=== PATIENT | male | born 1950 | race Caucasian/White ===

== ENCOUNTER 2018-07-09 06:18 | Inpatient (IN) | payer MEDICARE, MEDICAID ==
[2018-07-09 06:52] VITALS: BP 128/87
[2018-07-09] MEDS ORDERED: Magnesium Hydroxide (MOM) 30 mL UDC PO PRN (06:52)
[2018-07-09] MEDS ORDERED: Maalox 30 mL Cup PO PRN (06:52)
[2018-07-09 08:05] LABS: CHOLESTEROL 159 mg/dL (<200); HDL -HIGH DENSITY LIPOPROTEIN 38 mg/dL (23-92); TRIGLYCERIDES 304 mg/dL (<150)
[2018-07-09] MEDS ORDERED: Benztropine 1 MG TAB PO SCH (08:15)
[2018-07-09] MEDS: Multivitamin Tab PO SCH (09:35)
[2018-07-09] MEDS: Benztropine 1 MG TAB PO SCH (16:27)
[2018-07-10] MEDS: Benztropine 1 MG TAB PO SCH ×2 (08:45→16:31)
[2018-07-10] MEDS: Multivitamin Tab PO SCH (08:45)
[2018-07-10] MEDS: Escitalopram Oxalate 5 mg Tab PO SCH (08:58)
[2018-07-10] MEDS ORDERED: Escitalopram Oxalate 5 mg Tab PO SCH (09:00)
--- NOTE | 2018-07-10 12:53 | Psychiatric Evaluation ---
DATE OF SERVICE: 07/09/2018 IDENTIFYING INFORMATION: The patient is a 68-year-old male. CHIEF COMPLAINT: No answer. HISTORY OF PRESENT ILLNESS: The patient was walking on the streets, aggressive towards staff. He was on a hold for danger to self, grave disability, danger to others. He is homeless, unable to participate in meaningful conversation or make safe plan for self-care. When I talked to him, he looked disheveled. He was internally preoccupied, unable to make safe plan for self-care, unpredictable, impulsive, needing redirection. PAST PSYCHIATRIC HISTORY: Unobtainable. MEDICAL HISTORY: Deferred to the medical doctor.. ALLERGIES: The patient has no known drug allergy. MEDICATIONS: The patient was initiated on Lexapro 5 mg daily, Cogentin 1 mg twice a day. FAMILY AND SOCIAL HISTORY: Unobtainable. MENTAL STATUS EXAMINATION: The patient is appropriately dressed, not well groomed. He is homeless, unable to participate in meaningful conversation, unable to make safe plan for self-care, unpredictable, impulsive, unable to tell me his age, date, where he is, why he is here. His long or short-term memory is poor. Insight and judgment are questionable impaired. IMPRESSION: Psychosis, not otherwise specified, dementia. MEDICAL DIAGNOSES: As per medical doctor. I would recommend continue medication. We will do group therapy, milieu therapy. ESTIMATED LENGTH OF STAY: 3-7 days ____ patient. DISCHARGE CRITERIA: Feeling better with a safe place to go to after discharge. JOB# [id number]
--- NOTE | 2018-07-10 16:42 | Psychiatric Evaluation ---
DATE OF SERVICE: 07/09/2018 HISTORY OF PRESENT ILLNESS: A 68-year-old male with unclear history of mental illness brought in because was noted to be aggressive, disoriented, placed on a hold. On [id number], the patient is AO to name only, rambling, pacing up and down the hallway, making odd gestures and movements with his hands, touching the floor, putting his hands in his mouth, then touching the floor again. There is almost an obsessive quality to his movements and behaviors. Staff requiring to prompt him quite a bit, prompt him to eat, redirection. PAST MEDICAL HISTORY: Unclear. PAST PSYCHIATRIC HISTORY: Schizophrenia. He is on Haldol, not answering any questions about diagnoses or admission in the past. SOCIAL HISTORY: Unclear at this time, it appears the patient may be homeless. No other address but the hospital address. Unclear if there is any family involved. Unclear drugs, alcohol, or tobacco. MEDICATIONS: Noted. MEDICAL HISTORY: Noted. Please see full H and P. MENTAL STATUS EXAMINATION: Disheveled, unkempt, little eye contact, and rambling nonsensical, AO to name only. Mood not answering. Affect flat. Thought processes were disorganized. No overt SI or HI, unclear psychotic symptoms. Seems to be mumbling to self. Insight poor. Judgment poor, impulse control highly questionable. PROVISIONAL DIAGNOSES: Psychosis, unspecified, likely schizophrenia, rule out schizoaffective disorder. MEDICAL: Please see full H and P. It is unclear if he has any signs and symptoms or evidence of dementia. ESTIMATED LENGTH OF STAY: 7-10 days. Functional impairment. The patient requiring a higher level of care at this time. Will likely need referral to a [facility] facility, help with placement. ASSESSMENT: The patient is disorganized, psychotic, appearing bizarre, gravely disabled. PLAN: We will continue Haldol. Initiate Lexapro to target any obsessive qualities, obsessive compulsive disorder as a rule out at this time. TREATMENT PLAN: Includes group as well as milieu therapy. The patient will also likely need help with placement. CONDITIONS FOR DISCHARGE: Improved mood, improved affect, better control of any psychotic symptoms, safe discharge plan. JOB# [id number]
[2018-07-11] MEDS: Benztropine 1 MG TAB PO SCH ×2 (08:16→16:29)
[2018-07-11] MEDS: Escitalopram Oxalate 5 mg Tab PO SCH (08:16)
[2018-07-11] MEDS: Multivitamin Tab PO SCH (08:16)
--- NOTE | 2018-07-12 00:53 | Progress Notes ---
DATE: 07/11/2018 SUBJECTIVE: Case was discussed with staff of the patient, reviewed records. The patient continues to be unable to provide a meaningful conversation, irritable. He was eating from the floor, making gestures and movement, unable to participate in meaningful conversation with a history of schizophrenia. Continues to look disheveled, unkempt. When I asked him how old is he today, he said 26, but he would not look me in the eye. He continues to be unpredictable, impulsive, needing redirection and he is gravely disabled. He is homeless needs placement, cannot formulate a safe plan for self-care and no side effects with the medication, no sedation or nausea or no extrapyramidal symptoms. We will continue to work with the patient in group therapy, milieu therapy, and adjust the medication as needed. JOB# [id number]
--- NOTE | 2018-07-12 07:35 | History & Physical ---
ADMIT DATE: 07/11/2018 REASON FOR ADMISSION: Psychiatric disorder I was asked to see the patient for medical evaluation. No reported medical concerns. The patient denies complaints. PAST MEDICAL HISTORY: No significant past medical history. PAST SURGICAL HISTORY: No significant past surgical history. SOCIAL HISTORY: No reported alcohol, tobacco or street drugs. MEDICATIONS: Maalox, Cogentin, Lexapro, Haldol, Ativan, milk of mag and vitamin C. REVIEW OF SYSTEMS: No fever, no chills, no diarrhea, no vomiting, no abdominal pain, no trouble breathing, no chest pain, no headache or other complaints or concerns. PHYSICAL EXAMINATION: VITAL SIGNS: Temperature 97.9, pulse 80, respirations 20, blood pressure 126/80 on room air. Pain is 0. GENERAL APPEARANCE: The patient confused no distress noted HEART: S1, S2 normal. LUNGS: Clear. ABDOMEN: Soft. NEUROLOGIC: Awake, but confused. Follows commands. No focal deficits. ASSESSMENT: 1. Hyperlipidemia. 2. Psych disorder. PLAN: Low-fat diet. Fall precautions, aspiration precautions, psychotropic medication, Psych management per psychiatrist. JOB# [id number] MTDD
[2018-07-12] MEDS: Benztropine 1 MG TAB PO SCH ×2 (08:37→16:35)
[2018-07-12] MEDS: Multivitamin Tab PO SCH (08:37)
--- NOTE | 2018-07-12 18:14 | Progress Notes ---
DATE: 07/12/2018 SUBJECTIVE: A 68-year-old male, walking apparently on the streets, aggressive towards staff, and noted to be homeless. Mumbling to self, taking to self, eating food of the ground, disheveled appearing, very very poor historian, unable to answer any questions. Currently on high doses of Haldol and also Lexapro for what appears to be some obsessional behaviors, gravely disabled, unable to participate in any sort of self-care planning discussion. ASSESSMENT: The patient is psychotic, disorganized appearing, likely has had schizophrenia for decades. PLAN: We will continue dosing of Haldol and increase dosing of Lexapro. JOB# [id number]
[2018-07-13] MEDS: Multivitamin Tab PO SCH (08:42)
[2018-07-13] MEDS: Benztropine 1 MG TAB PO SCH ×2 (08:42→17:11)
--- NOTE | 2018-07-13 17:02 | Progress Notes ---
DATE: 07/13/2018 SUBJECTIVE: The patient was walking on the street, aggressive towards staff, very confused, disoriented, remains gravely disabled, mumbling in the hallway, talking to self, not making any sense, picking things up off the ground, preoccupied, picking up materials, needing a lot of redirection. The patient is confused, unable to participate in any self-care planning discussion. ASSESSMENT AND PLAN: The patient remains symptomatic, bizarre, ongoing safety concerns. We will continue to monitor. The patient will need help with placements. JOB# [id number]
[2018-07-14] MEDS: Multivitamin Tab PO SCH (09:03)
[2018-07-14] MEDS: Benztropine 1 MG TAB PO SCH ×2 (09:03→17:20)
--- NOTE | 2018-07-14 18:53 | Progress Notes ---
DATE: 07/14/2018 The patient remains symptomatic, disorganized, bizarre, gravely disabled, unable to have any sort of reasonable conversation, still with some obsessive behaviors, bizarre behavior, still picking things up off the ground, picking up trash, putting objects in his mouth, needing constant redirection, at times, needing p.r.n. dosing of Ativan. ASSESSMENT: The patient is confused, withdrawn, gravely disabled, needing a higher level of prompting, redirection, mumbling to self, bizarre ideations, behaviors. PLAN: We will continue to monitor, titrate and adjust medications. JOB# [id number]
[2018-07-15] MEDS: Benztropine 1 MG TAB PO SCH ×2 (09:00→17:16)
[2018-07-15] MEDS: Multivitamin Tab PO SCH (09:01)
--- NOTE | 2018-07-15 11:37 | Diagnostic Imaging Report ---
CT scan abdomen and pelvis without intravenous contrast HISTORY: Pain, abdominal distention Total DLP equals 462 CTDI equals 9.5 Axial sections were obtained from the xiphoid process down to the pubic symphysis. The exam of the liver demonstrates a subcentimeter hypodensity within the left lobe consistent with a cyst. No other focal hepatic parenchymal lesions are seen. The spleen appears normal. No focal abnormality seen within the pancreas. The adrenal glands appear normal bilaterally. No focal renal lesions. No calculi. No hydronephrosis. The exam of the pelvis demonstrates a markedly distended stool-filled rectum and sigmoid colon. Findings consistent with changes of fecal impaction. Additional mildly dilated stool-filled large bowel seen. No other abnormal masses or abnormal fluid collections. Atherosclerotic calcination noted throughout the aorta. IMPRESSION: 1. Markedly distended stool-filled rectum and sigmoid colon consistent with a fecal impaction 2. No other acute abnormalities
[2018-07-15] MEDS ORDERED: Fleet Enema 135 mL RC ONE (20:00)
--- NOTE | 2018-07-15 21:32 | General Progress Note ---
Subjective - Review of Systems Service Date: 07/15/18 Subjective: Patient seen and examined noticed to have abd distension patient been eating objects from the floor Objective - Results Recent Labs: Laboratory Last Values Triglycerides 304 mg/dL (<150) H 07/09/18 07:30 Cholesterol 159 mg/dL (<200) 07/09/18 07:30 LDL Cholesterol Direct 80 mg/dL (75-193) 07/09/18 07:30 HDL Cholesterol 38 mg/dL (23-92) 07/09/18 07:30 - Physical Exam Vitals and I&O: Vital Signs Temp 98.2 F 07/15/18 20:22 Pulse 94 07/15/18 20:22 Resp 20 07/15/18 20:22 BP 139/80 07/15/18 20:22 Pulse Ox 96 07/15/18 20:22 Intake & Output 07/15/18 07/15/18 07/16/18 06:59 18:59 06:59 Intake Total 240 900 240 Balance 240 900 240 Intake: Oral 240 900 240 Other: # Voids 2 3 1 # Bowel Movements 1 Active Medications: Current Medications Acetaminophen (Tylenol) 650 mg PO Q4HR PRN PRN Reason: Mild Pain / Temp above 100 Stop: 09/07/18 06:51 Al Hydrox/Mg Hydrox/Simethicone (Maalox) 30 ml PO Q4HR PRN PRN Reason: GI DISTRESS Stop: 09/07/18 06:51 Benztropine Mesylate (Cogentin) 1 mg PO BID [facility] Stop: 09/07/18 16:59 Last Admin: 07/15/18 17:16 Dose: 1 mg Docusate Sodium (Colace) 100 mg PO BID [facility] Stop: 09/14/18 08:59 Escitalopram Oxalate (Lexapro) 10 mg PO DAILY [facility] Stop: 09/10/18 16:59 Last Admin: 07/15/18 09:01 Dose: 10 mg Haloperidol (Haldol) 10 mg PO BID [facility] Stop: 09/07/18 12:59 Last Admin: 07/15/18 17:17 Dose: 10 mg Lorazepam (Ativan) 0.5 mg PO Q4HR PRN; Protocol PRN Reason: Anxiety Stop: 08/08/18 06:51 Last Admin: 07/14/18 22:42 Dose: 0.5 mg Magnesium Hydroxide (Milk Of Magnesia) 30 ml PO HS PRN PRN Reason: Constipation Multivitamins/Vitamin C (Theragran) 1 tab PO DAILY [facility] Stop: 09/07/18 08:59 Last Admin: 07/15/18 09:01 Dose: 1 tab Cardiovascular: Regular rate Lungs: Clear to auscultation Abdomen: Distended, no Tender Assessment/Plan - Assessment Assessment: Severe constipation Hyperlipidemia Mental health disorder - Plan Plan: fleet enema dulcolax prn Plan of care discussed with nursing staff Nutritional Asmnt/Malnutr-PDOC - Dietary Evaluation Malnutrition Findings (Please click <Entered> for more info): Nutritional Asmnt/Malnutrition Start: 07/12/18 09: 25 Text: Status: Complete Freq: Protocol: Document 07/12/18 09:25 MMDONNY (Rec: 07/12/18 09:40 MMDONNY CAMARILLO- [id number]) Nutritional Asmnt/Malnutrition Patient General Information Nutritional Screening Moderate Risk Diagnosis Schizophrenia Pertinent Medical Hx/Surgical Hx none available Subjective Information Per nursing notes, patient is homeless. Sleeping at time of visit. Current Diet Order/ Nutrition Support Regular Patient / S.O Not Indicated Pertinent Medications maalox, MOM, Theragran Pertinent Labs (07/09) TAG 304 Nutritional Hx/Data Height 1.73 m Height (Calculated Centimeters) 172.7 Current Weight (lbs) 65.771 kg Weight (Calculated Kilograms) 65.8 Weight (Calculated Grams) 48786.9 Hardy Body Weight 154 % Hardy Body Weight 94 Body Mass Index (BMI) 22.0 Recent Weight Change No Weight Status Approriate GI Symptoms GI Symptoms None Last BM 07/11 x 1 Difficult in: None Food Allergies No Cultural/Ethnic/Adventism Belief None indicated Usual diet at home unknown Skin Integrity/Comment: Dajuan 18, per wound care nurse, left lateral forearm skin tear 0.6 cm x 0.9 cm Current %PO Good (75-100%) Estimated Nutritional Goals BEE in Kcals: Using Current wt Calories/Kcals/Kg 25-30 kcal/kg using CBW 65.9kg Kcals Calculated 8947-6533 kcal/day Protein: Using Current wt Protein g/k-1.2 gm/kg Protein Calculated 65-80 gm/day Fluid: ml 9463-7993 ml/day Nutritional Problem 1. Problem Problem No nutrition diagnosis at this time Intervention/Recommendation Comments 1. Continue regular diet as tolerated by patient. Expected Outcomes/Goals Expected Outcomes/Goals Oral intake >75% of meals, weight stable, nutrition related labs WNL
[2018-07-16] MEDS: Benztropine 1 MG TAB PO SCH ×2 (08:39→16:15)
[2018-07-16] MEDS: Multivitamin Tab PO SCH (08:39)
--- NOTE | 2018-07-16 15:09 | Progress Notes ---
DATE: 07/15/2018 SUBJECTIVE: A 68-year-old male who remains confused and disoriented. No agitation. Firstly, needing a lot of prompting, redirection and picking things up from the floor in trash, putting things in his mouth, responding to internal stimuli, bizarre ideations, behaviors. Nonsensical on exam, not answering any questions. ASSESSMENT: The patient is bizarre, symptomatic, odd behaviors. Gait is gravely disabled, will need help with placement. The patient remains quite symptomatic, still accused, still with odd behaviors. JOB# [id number]
[2018-07-17] MEDS: Multivitamin Tab PO SCH (08:59)
[2018-07-17] MEDS: Benztropine 1 MG TAB PO SCH ×2 (08:59→17:01)
--- NOTE | 2018-07-17 19:04 | Progress Notes ---
DATE: 07/17/2018 SUBJECTIVE: The patient is currently in the hospital, still bizarre, picking food of hospital ground, out of the trash, eating it, obsessional behaviors, bizarre behaviors, AO to name only requiring a lot of prompting, redirection, selectively mute, mumbling something, forgetful, guarded, unable to participate in any self-care planning. Decisions were discussions at this time gravely disabled. ASSESSMENT: The patient remains psychotic, mumbling to self, bizarre. PLAN: We will continue to monitor, titrate, and adjust medications. The patient will need help with placement. JOB# [id number]
--- NOTE | 2018-07-17 19:44 | Progress Notes ---
DATE: 07/16/2018 SUBJECTIVE: The patient remains symptomatic, disorganized, AO to name only, gravely disabled, talking nonsense, mumbling, bizarre, still obsessional, picking food up off the floor and eating it, staff requiring to prompt him and redirect him for ADLs. ASSESSMENT: The patient is psychotic, bizarre, symptomatic, gravely disabled, cannot care for his basic needs. PLAN: We will continue to monitor, titrate, and adjust medications. The patient will need help with placement. JOB# [id number]
[2018-07-18] MEDS: Multivitamin Tab PO SCH (08:30)
[2018-07-18] MEDS: Benztropine 1 MG TAB PO SCH ×2 (08:30→17:30)
--- NOTE | 2018-07-19 01:56 | Progress Notes ---
DATE: 07/18/2018 Case was discussed with staff of the patient, reviewed records. This patient is well-known patient I have seen him before, covering for Dr. Lee. This patient is a well-known case to me. Continues to be unpredictable, impulsive, eating out of trash. Continues to be selectively mute, talking to himself. Continues to have poor insight, and unable to make safe plan for self-care. Lexapro 10 mg daily, Haldol 10 mg twice a day. No side effects, no sedation, no nausea, and no extrapyramidal symptoms. I will continue to work with the patient in group therapy, milieu therapy, and adjust medications as needed. JOB# [id number]
[2018-07-19] MEDS: Benztropine 1 MG TAB PO SCH ×2 (09:10→16:11)
[2018-07-19] MEDS: Multivitamin Tab PO SCH (09:10)
--- NOTE | 2018-07-20 08:03 | Progress Notes ---
DATE: SUBJECTIVE: Chart reviewed and the patient interviewed. Also discussed the patient's condition with the staff and reviewed records and labs. The patient is still agitated and is still in aggressive mood and is still unpredictable behavior. The patient threw coffee earlier on other patient and was throwing objects towards others. The patient also is still obsessed with food and gets aggressive when he does not get what he wants. Also is still acting bizarre and picking things from the floor, putting it in his mouth. Also is impulsive and yelling and screaming. ASSESSMENT: The patient is still aggressive and agitated. TREATMENT PLAN: We will continue Haldol in a dose of 10 mg twice a day and Lexapro 10 mg every day and we will continue to monitor his behavior and his condition closely. JOB# [id number]
[2018-07-20] MEDS: Multivitamin Tab PO SCH (09:25)
[2018-07-20] MEDS: Benztropine 1 MG TAB PO SCH ×2 (09:26→16:48)
--- NOTE | 2018-07-21 04:12 | Progress Notes ---
DATE: 07/20/2018 SUBJECTIVE: Chart reviewed and the patient interviewed. Also discussed the patient's condition with the staff and reviewed records and labs. The patient threw coffee on other patients. The patient is still aggressive and agitated and rambling. Also, it is difficult to redirect him. The patient also later on threw himself on the floor for no reason and staff had to take him to timeout. He also is still acting bizarre and picking things on the floor and putting them in his mouth. Also, yelling and screaming. Otherwise, the patient denies any side effects of medications. Although the patient is taking high doses of medications including Haldol 10 mg twice a day and Zyprexa 10 mg every day yet he is still agitated and in irritable mood. ASSESSMENT: The patient is still psychotic and aggressive. TREATMENT PLAN: Continue monitoring his behavior closely and working on behavioral modifications and we will continue to follow up. JOB# [id number]
[2018-07-21] MEDS: Benztropine 1 MG TAB PO SCH ×2 (09:15→18:44)
[2018-07-21] MEDS: Multivitamin Tab PO SCH (09:15)
[2018-07-22] MEDS: Multivitamin Tab PO SCH (09:30)
[2018-07-22] MEDS: Benztropine 1 MG TAB PO SCH ×2 (09:30→16:20)
--- NOTE | 2018-07-22 15:15 | Progress Notes ---
DATE: 07/21/2018 SUBJECTIVE: The patient still continuing to forklift picker things off the ground, eat things, yelling, screaming, bizarre, very poor historian AO to name only, ambulatory, bizarre, not causing any problems. Will likely need is secured facility, possibly one deals more with dementia care given his current symptoms and how impoverished he is. It is unclear if placement has been confirmed at this time. I am recommending a halfway facility in [facility]. ASSESSMENT: The patient is bizarre, gravely disabled, still symptomatic, psychotic appearing PLAN: The patient likely at his baseline, unable to care for his basic needs. [facility]# [id number]
[2018-07-23] MEDS: Benztropine 1 MG TAB PO SCH ×3 (08:59→17:14)
[2018-07-23] MEDS: Multivitamin Tab PO SCH ×2 (08:59→17:22)
--- NOTE | 2018-07-23 12:34 | Progress Notes ---
DATE: 07/22/2018 SUBJECTIVE: The patient is currently very confused, disoriented, needing a lot of redirection, prompting, talking to self, unkempt, just response to his name only, putting things in his mouth, spitting them out, sometimes swallowing them, gravely disabled, unable to care for his basic needs. We are currently trying to help the patient with placement at this time. ASSESSMENT: The patient is psychotic, bizarre, odd behaviors. Currently on Haldol, Lexapro. PLAN: We will continue to monitor concerns about underlying dementia process. We will initiate Namenda at this time. JOB# [id number]
--- NOTE | 2018-07-24 02:30 | Progress Notes ---
DATE: 07/23/2018 SUBJECTIVE: The patient is currently in the hospital, confused, disoriented, alert and oriented to name only, does not know where he is or what is going on. Still picking up things from the ground, eating it, spitting it out, sometimes actually eating it, sometimes agitated, requiring some redirection, prompting. The patient unable to participate in any meaningful conversation about self-care planning. ASSESSMENT: The patient needing a lot of redirection, prompting, AO to name only, confused, disoriented, unable to care for his basic needs. He will need help with placement. JOB# [id number]
[2018-07-24] MEDS: Benztropine 1 MG TAB PO SCH (08:57)
[2018-07-24] MEDS: Multivitamin Tab PO SCH (08:58)
--- NOTE | 2018-07-25 01:39 | Discharge Summary ---
DATE OF DISCHARGE: 07/24/2018 HISTORY OF PRESENT ILLNESS: A 68-year-old male, walking on the streets, aggressive, unable to participate in meaningful conversation, disheveled, unkempt, taking things up off the ground and eating objects, AO to name only. PAST PSYCHIATRIC HISTORY: Unclear, possibly dementia, schizophrenia. SOCIAL HISTORY: The patient was homeless. Medications were noted. PROVISIONAL DIAGNOSIS: Concerns for dementia, also schizophrenia. Under medical, please see full H and P. HOSPITAL COURSE: After initial assessment, the patient will be started on medications. Medications were adjusted as needed. Over the course of the hospitalization, he was calmer, no longer combative, remained very confused, disorganized, gravely disabled. Sleeping well, eating well, redirectable. No violence, but the latter end of treatment, he remained confused, but calm. Placement was confirmed. CONDITION UPON DISCHARGE: Improved, allowing ADLs, confused, disoriented. No SI, no HI, no overt paranoias or delusions, but sometimes mumbling to self. No side effects. PROVISIONAL DIAGNOSES: Dementia, schizophrenia. Under medical, please see full H and P. PROGNOSIS: The patient follows up with outpatient mental health services and remains compliant with treatment. Prognosis will improve, otherwise guarded. [facility]# [id number]
== END 2018-07-24 14:40 | DRG 884 ==
LOC: GERO 06:18
PROVIDERS: ADMIT Psychiatry & Neurology Psychiatry; ATTEND Psychiatry & Neurology Psychiatry
DX: F03.90 Unspecified dementia, unspecified severity, without behavioral disturbance, psychotic disturbance, mood disturbance, and anxiety (principal); F29 Unspecified psychosis not due to a substance or known physiological condition; E78.5 Hyperlipidemia, unspecified; K59.00 Constipation, unspecified; F20.9 Schizophrenia, unspecified; Z59.0 Homelessness
CPT/HCPCS: 36415-UA; 80061-TC; 83036-90; 90899; G0410; Z7610

== ENCOUNTER 2019-05-15 22:02 | Inpatient (IN) | payer MEDICARE, MEDICAID ==
[2019-05-15 22:48] VITALS: BP 123/79
[2019-05-15] MEDS ORDERED: Maalox 30 mL Cup PO PRN (22:52)
[2019-05-15] MEDS ORDERED: Magnesium Hydroxide (MOM) 30 mL UDC PO PRN (22:52)
[2019-05-16] MEDS ORDERED: Benztropine 1 MG TAB PO SCH (09:00)
[2019-05-16] MEDS: Multivitamin Tab PO SCH (09:05)
[2019-05-16] MEDS ORDERED: Benztropine 1 MG TAB PO PRN (13:15)
--- NOTE | 2019-05-16 13:30 | History & Physical ---
ADMIT DATE: 05/15/[address] Lee IDENTIFYING INFORMATION: The patient is a 69-year-old male. CHIEF COMPLAINT: The patient would not answer. HISTORY OF PRESENT ILLNESS: The patient was admitted from [facility] via gurney, accompanied by two ambulance personnel initially from [facility], admitted under the care of Dr. Lee for psych care and Dr. Tejada for medical care because of aggressive behavior, hitting, and kicking nurses, was diagnosed with schizophrenia in the past, demented, history of depression. When I tried talk to him the patient was uncooperative. He acted like he will say something and then he would not, apparently as maybe tardive dyskinesia. PAST PSYCHIATRIC HISTORY: Schizophrenia, dementia, depression. The patient with a history of UTIs, COPD, osteoarthritis, muscle wasting and atrophy encephalopathy. ALLERGIES: He has no known drug allergies. MEDICATIONS: The patient was started back on his Cogentin 1 mg twice a day, Depakote 250 mg at bedtime and Namenda 5 mg twice a day, Seroquel 50 mg twice a day. FAMILY AND SOCIAL HISTORY: The patient came from [facility]. MENTAL STATUS EXAMINATION: The patient is appropriately not very well groomed. He was in bed. He was moving his mouth. I think tardive dyskinesia, very uncooperative, act like he will say something, but nothing would come out of him, would not tell me the date, where he is, why he is here, unable to participate in meaningful conversation, make safe plan for self-care, unpredictable. He has been agitated, unpredictable, impulsive, needing redirection, unable to test his long or short term memory is poor, unable to say anything. When asked about hallucination, he would not answer. His insight and judgment is impaired. IMPRESSION: History of schizophrenia, dementia. MEDICAL DIAGNOSIS: Deferred to the medical doctor. He is accepting treatment. Negative poor coping skills. INITIAL TREATMENT PLAN: The patient will be continued with his medication. We will do group therapy, milieu therapy, and individual therapy. I will be changing his Cogentin 2 twice a day because of the possible tardive dyskinesia. ESTIMATED LENGTH OF STAY: 3-7 days. DISCHARGE CRITERIA: Decreasing agitation, able to take care of himself after discharge, outpatient treatment. JOB# [id number]
[2019-05-17] MEDS: Multivitamin Tab PO SCH (08:36)
[2019-05-17] MEDS ORDERED: chlorproMAZINE 25 mg/mL 2mL Amp IM STA (12:36)
--- NOTE | 2019-05-17 16:18 | Progress Notes ---
DATE: 05/17/2019 Case was discussed with staff of the patient, reviewed records. The patient has been very agitated. He continues to be unable to participate in a meaningful conversation, but he is still irritable, aggressive with the staff. Continues to have poor insight, unpredictable, so had to be medicated with Thorazine 25 mg daily. Otherwise, he is compliant with the medication with no side effects, no sedation, no nausea, no extrapyramidal symptoms. He had a 25 mg chlorpromazine a few minutes prior to now. He is demented, confused. No continues to have tardive dyskinesia. We will continue outpatient group therapy, milieu therapy, and adjust medications as needed. [facility]# [id number] PAO
--- NOTE | 2019-05-18 01:18 | Consultation ---
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 The patient has a history of depression, dementia and schizophrenia. Also, the patient has medical problems and consultation requested for medical management. The patient is unable to provide meaningful history. Chart reviewed. Discussed with the staff, pertinent information obtained. PAST MEDICAL HISTORY: COPD and osteoarthritis. FAMILY HISTORY: Negative. SOCIAL HISTORY: Nonsmoker, lives in a fpc. ALLERGIES: No allergies. REVIEW OF SYSTEMS: A 14-point review of systems, unable to obtain. No HIV, hepatitis, fall, trauma, bleeding or seizures. PHYSICAL EXAMINATION: GENERAL: Elderly male reluctant to talk. VITAL SIGNS: Temperature 97.4, pulse 90, respirations 20, blood pressure 122/91, oxygen saturation 96. HEENT: Mild pallor. No icterus or plaque. NECK: Supple. LUNGS: Breath sounds bilateral vesicular. ABDOMEN: Soft. Bowel sounds noted. LYMPHATIC: No cervical lymph nodes. EXTREMITIES: Arthritic changes present. DIAGNOSES: 1. Aggressive behavior as per psych team. 2. Chronic obstructive pulmonary disease. The patient's oxygen saturation 100% on room air. 3. Hypertension, new onset, slightly high. We will monitor. 4. Osteoarthritis. Tylenol as needed. We will order labs including thyroid test, RPR, hemoglobin A1c and UA. Also, chest x-ray. Rest of the care as ordered in CPOE. Thank you, Dr. Lee and Dr. Ferguson for this referral. JOB# [id number]
[2019-05-18] MEDS: Multivitamin Tab PO SCH (09:25)
--- NOTE | 2019-05-18 20:42 | Progress Notes ---
DATE: 05/18/2019 SUBJECTIVE: The patient coming in from [facility]. He was very aggressive, upset, struck out, kicked the nurse, stuck at a nurse. The patient rambling, just saying bizarre things, not making much sense, highly impulsive, unpredictable, concerns, he may strike out at others. History of tardive dyskinesia. Currently on dosing of Seroquel. ASSESSMENT: The patient remains symptomatic, still can get mad and strike out. Concerns about this, still mumbling to self. I will be increasing his dosing of Seroquel today. JOB# [id number]
[2019-05-19] MEDS: Multivitamin Tab PO SCH (08:59)
--- NOTE | 2019-05-19 22:40 | Progress Notes ---
DATE: 05/19/2019 SUBJECTIVE: A 69-year-old male in his room, not wearing any clothes, naked. I asked him to put clothes on, he refuses. Mumbling, whispering to self, noted to be sexually inappropriate, bizarre, psychotic, disorganized, not making any sense. Medications were noted. PLAN: We will continue to monitor and titrate dosing of antipsychotic medications. JOB# [id number]
[2019-05-20] MEDS: Multivitamin Tab PO SCH (08:14)
--- NOTE | 2019-05-20 11:15 | Diagnostic Imaging Report ---
CHEST X-RAY: AP view INDICATION: pain COMPARISON: None FINDINGS: Exam is limited due to overpenetration patient had obscuring the right hemithorax. Otherwise no focal consolidation. Heart size is normal. Osseous structures are intact. Gas-filled loops of bowel noted with copious stool. IMPRESSION: Limited assessment of the right upper hemithorax is patient's hand obscures this region. Otherwise no focal consolidation identified.
--- NOTE | 2019-05-20 20:13 | Progress Notes ---
DATE: 05/20/2019 SUBJECTIVE: The patient in the hospital, unpredictable, started outbursts of yelling, still disrobing at times, hypersexual, sometimes trying to masturbate, a lot at times in his room just mumbling, talking nonsense, disorganized. We will be increasing his dosing of Seroquel today. JOB# [id number]
[2019-05-21] MEDS: Multivitamin Tab PO SCH (08:48)
--- NOTE | 2019-05-21 18:01 | Progress Notes ---
DATE: 05/21/2019 SUBJECTIVE: The patient in the hospital, unruly, agitated, can be aggressive, mumbling, screaming. At times, very hostile towards staff, concerns for safety of self and also for safety of others, on a higher dose of Seroquel, remains psychotic, still mumbling to self. JOB# [id number]
[2019-05-22] MEDS: Multivitamin Tab PO SCH (08:37)
--- NOTE | 2019-05-22 21:00 | Progress Notes ---
DATE: 05/22/2019 SUBJECTIVE: The patient fondles of hypersexual. When I walked in the room, he continues to fondle himself naked, very inappropriate, mumbling to self, seems psychotic, anxious, restless. I will be switching his medications from Seroquel to Risperdal, unable to be cared for at a lower level, still actively psychotic, hypersexual. [facility]# [id number]
[2019-05-23] MEDS: Multivitamin Tab PO SCH (08:27)
--- NOTE | 2019-05-23 22:32 | Progress Notes ---
DATE: 05/23/2019 SUBJECTIVE: The patient was seen and evaluated. The patient's chart reviewed. Covering for Dr. Lee. IDENTIFYING DATA: A 69-year-old male brought in here initially from [facility] for aggressive and hitting behavior, diagnosed with schizophrenia. Today on [id number] evaluation, the patient refuses interview. Noted to be suspicious and hypersexual according to the staff, disorganized, stressful, not responding. ASSESSMENT AND PLAN: Schizophrenia, recent transition from Seroquel to Risperdal. No observable EPS, side effects of medications. We will continue targeting the patient's psychotic symptoms. Reconciliation review includes Depakote 250 mg p.o. at bedtime, Colace, Ativan as needed, Namenda 5 mg p.o. b.i.d., Paxil 10 b.i.d. and risperidone 0.5 p.o. b.i.d. JOB# [id number]
[2019-05-24] MEDS: Multivitamin Tab PO SCH (08:08)
--- NOTE | 2019-05-24 08:52 | Progress Notes ---
DATE: 05/24/2019 SUBJECTIVE: Today on [id number]-bo-[id number] evaluation, responding, in his room, irritable upon approach, disengaged, avoidant ____ communication. MENTAL STATUS EXAMINATION: Avoiding, thought blocking, responding. ASSESSMENT AND PLAN: Schizophrenia, hypersexual, continues to find himself distraught as evident by the patient, responding heavily. We will continue with the recent transition from Seroquel to risperidone which he is tolerating without complications. JOB# [id number]
[2019-05-25] MEDS: Multivitamin Tab PO SCH (08:22)
[2019-05-25] MEDS: Benztropine 1 MG TAB PO SCH (17:51)
--- NOTE | 2019-05-25 23:47 | Progress Notes ---
DATE: 05/25/2019 SUBJECTIVE: The patient in the hospital, still bizarre, psychotic appearing, responding heavily to internal stimuli. EPS noted. I will be switching his Cogentin to a scheduled medication, switch him to 1 mg twice daily, ongoing symptoms, safety concerns, hypersexual, bizarre behaviors. PLAN: We will continue to monitor. JOB# [id number]
[2019-05-26] MEDS: Multivitamin Tab PO SCH (08:30)
[2019-05-26] MEDS: Benztropine 1 MG TAB PO SCH ×2 (08:30→16:18)
--- NOTE | 2019-05-26 22:57 | Progress Notes ---
DATE: SUBJECTIVE: The patient was seen, chart reviewed, discussed with staff. The patient in the hospital, still agitated at times, aggressive, had been disrobing last week, concerns for extrapyramidal side effects by made his Cogentin routine, still unruly, still get agitated, a mumbling to self, pacing back and forth, responding to internal stimuli. PLAN: We will continue to monitor ongoing psychotic symptoms. We will continue dosing of Risperdal until EPS is more controlled. JOB# [id number]
--- NOTE | 2019-05-27 06:47 | Progress Notes ---
DATE: 05/27/2019 Dr. Robert covering for Dr. Lee. SUBJECTIVE: Chart reviewed and the patient interviewed. Also discussed the patient's condition with the staff and reviewed records and labs. The patient remains confused and preoccupied. The patient also is still rambling and is still exhibiting sexual inappropriate behavior. Also, during my interview, the patient seems to be disoriented and mumbles to himself and unable to answer any of my questions coherently. The patient also has been exposing himself and disrobing and continued to have sexual inappropriate behavior. ASSESSMENT: The patient is still agitated and confused. TREATMENT PLAN: We will increase Depakote to 250 mg twice a day and we will increase Risperdal to 1 mg twice a day. Also, continue to work on his irritability and his anger and continue to follow up closely. JOB# [id number]
[2019-05-27] MEDS: Multivitamin Tab PO SCH (08:47)
[2019-05-27] MEDS: Benztropine 1 MG TAB PO SCH ×2 (08:48→16:10)
[2019-05-28] MEDS: Benztropine 1 MG TAB PO SCH ×2 (08:21→16:57)
[2019-05-28] MEDS: Multivitamin Tab PO SCH (08:21)
--- NOTE | 2019-05-28 21:34 | Consultation ---
DATE OF CONSULTATION: 05/27/2019 INTERNAL MEDICINE CONSULTATION HISTORY OF PRESENT ILLNESS: The patient is seen at [facility]. The patient is a patient of mine. I was out of vacation. Dr. Clemente Eagle was covering me. The patient was admitted in [facility] on 05/15/2019. The patient is a patient of mine. PAST MEDICAL HISTORY: Significant for seizure disorder, COPD, coronary artery disease, peptic ulcer disease, gastritis, arthritis. PHYSICAL EXAMINATION: VITAL SIGNS: Stable. LUNGS: Show bilateral rhonchi as crepitation. No bronchial breathing. HEART: First and second normal. ABDOMEN: Soft. Bowel sounds are present and good. EXTREMITIES: Show arthritis. NEUROLOGIC: The patient has advanced psychosis. MEDICAL DIAGNOSES: Include seizure, chronic obstructive pulmonary disease, coronary artery disease, peptic ulcer disease, gastritis, arthritis. TREATMENT PLAN: Labs have been reviewed. Psych consult has been reviewed. Medicines have been reviewed. JOB# [id number]
--- NOTE | 2019-05-28 21:43 | Progress Notes ---
DATE: 05/28/2019 INTERNAL MEDICINE CONSULTATION FOLLOWUP SUBJECTIVE: The patient is a 69-year-old male [facility]. PAST MEDICAL HISTORY: Significant for seizure disorder, COPD, arthritis, peptic ulcer disease, arthritis, osteoporosis. No new symptoms. No acute infection. No recent seizure activity. OBJECTIVE: VITAL SIGNS: Stable. LUNGS: Show occasional rhonchi, occasional crepitation. No bronchial breathing. HEART: First and second heart sounds normal. ABDOMEN: Soft. Bowel sounds good. EXTREMITIES: Show arthritis. NEUROLOGIC: The patient has advanced psychosis and dementia. Psych consult reviewed, nursing report reviewed. MEDICAL DIAGNOSES: Seizure disorder, chronic obstructive pulmonary disease, arthritis, peptic ulcer disease, gastritis, arthritis. PLAN: Continue current medical management. JOB# [id number]
[2019-05-29] MEDS: Benztropine 1 MG TAB PO SCH ×2 (08:18→16:23)
[2019-05-29] MEDS: Multivitamin Tab PO SCH (08:18)
--- NOTE | 2019-05-29 22:12 | Progress Notes ---
DATE: 05/29/2019 INTERNAL MEDICINE CONSULTATION FOLLOWUP SUBJECTIVE: The patient is a 69-year-old male. Current medical problems include seizure disorder, COPD, coronary artery disease, peptic ulcer disease, gastritis, arthritis. No new symptoms. OBJECTIVE: VITAL SIGNS: Stable. LUNGS: Clear. HEART: First and second heart sounds normal. ABDOMEN: Soft. Bowel sounds are present and good. EXTREMITIES: Show arthritis. NEUROLOGIC: The patient has no additional findings. PLAN: Nursing records reviewed. Psych consult reviewed. Continue current medical management. JOB# [id number]
[2019-05-30] MEDS: Benztropine 1 MG TAB PO SCH ×2 (08:58→17:35)
[2019-05-30] MEDS: Multivitamin Tab PO SCH (08:59)
--- NOTE | 2019-05-30 22:20 | Progress Notes ---
DATE: 05/30/2019 SUBJECTIVE: The patient is currently in the hospital; still irritable, disrobes self, hypersexual at times, still psychotic, mumbling to self, ongoing EPS. Concerns about his ability to really function at a lower level of care. PLAN: The patient likely to go back to [facility] for ongoing symptoms, safety concerns. I will attempt to adjust dosing of medication. Continue dosing of Risperdal, Depakote. JOB# [id number]
[2019-05-31] MEDS: Multivitamin Tab PO SCH (08:43)
[2019-05-31] MEDS: Benztropine 1 MG TAB PO SCH ×2 (08:44→16:30)
--- NOTE | 2019-06-01 08:04 | Progress Notes ---
DATE: 05/29/2019 DATE: 05/29/2019. Chart reviewed and the patient interviewed. Also discussed the patient's condition with the staff and reviewed records and labs. The patient is still confused and still has episodes of irritability and agitation, but sexual inappropriate behavior decreased. The patient also is still interacting minimally with others. He also still has been irritable and angry mood at times. Also, sexual inappropriate behavior decreased. Also, sleeping better at night. The patient also is compliant with taking his medications with no side effects. ASSESSMENT: The patient is less agitated, but still psychotic. TREATMENT PLAN: Continue monitoring his behavior and his condition closely. Also, continue adjusting psychotropic medications and work on behavioral modification. [facility]# [id number]
--- NOTE | 2019-06-01 08:04 | Progress Notes ---
DATE: 05/30/2019 INTERNAL MEDICINE CONSULTATION FOLLOWUP INDICATION: The patient is a 69-year-old patient, [facility]. CURRENT MEDICAL PROBLEMS: Include seizure disorder, COPD, coronary artery disease, peptic ulcer disease, gastritis, arthritis. CHIEF COMPLAINT: No new symptoms. OBJECTIVE: VITAL SIGNS: Stable. LUNGS: Show occasional rhonchi, occasional crepitation. No bronchial breathing. HEART: First and second present. ABDOMEN: Soft, bowel sounds present. EXTREMITIES: Show arthritis. NEUROLOGIC: The patient has no additional deficit. Psych consult reviewed. Nursing records reviewed. PLAN: Continue current medical management. JOB# [id number]
--- NOTE | 2019-06-01 08:04 | Progress Notes ---
DATE: 05/31/2019 SUBJECTIVE: The patient in the hospital, still irritable, disrobe, was masturbating, mumbling to self, looking the floor, really bizarre behaviors, impulsive behaviors, compulsive behaviors. Currently on dosing of Risperdal and Paxil. We are increasing his dosing of Paxil to try to target anxiety, his impulsive behaviors. Ongoing symptoms were not safe for a lower level of care. [facility]# [id number]
--- NOTE | 2019-06-01 08:04 | Progress Notes ---
DATE: 05/28/2019 DATE OF SERVICE: 05/28/2019 Chart reviewed and the patient interviewed. Also discussed the patient's condition with the staff and reviewed records and labs. Patient is still confused, also still preoccupied and seems to be disoriented and actively responding to stimuli. The patient also is still exhibiting sexual inappropriate behavior at times. Also, the patient is not sleeping well at night, also still having severe mood swings. Otherwise, no side effects of medications. ASSESSMENT: The patient is still acting out sexually and is still in irritable moods and needs close monitoring. TREATMENT PLAN: Risperdal and Depakote were increased yesterday. He will continue the same dose, and we will continue monitoring behavior and condition closely. JOB# [id number]
[2019-06-01] MEDS: Multivitamin Tab PO SCH (08:18)
[2019-06-01] MEDS: Benztropine 1 MG TAB PO SCH ×2 (08:19→17:17)
--- NOTE | 2019-06-01 21:03 | Progress Notes ---
DATE: 06/01/2019 SUBJECTIVE: The patient is a 69-year-old male seen at [facility]. CURRENT MEDICAL PROBLEMS: Include seizure disorder, COPD, coronary artery disease, peptic ulcer disease, gastritis, arthritis. No new symptoms. OBJECTIVE: VITAL SIGNS: Stable. LUNGS: Clear. HEART: First and second normal. ABDOMEN: Soft. Bowel sound present. EXTREMITIES: Show arthritis. NEUROLOGIC: The patient has no additional focal deficit. ASSESSMENT AND PLAN: Psych consult reviewed. Continue current medical management and the medicine followup. JOB# [id number]
--- NOTE | 2019-06-02 01:45 | Progress Notes ---
DATE: 06/01/2019 The patient remains hypersexual, bizarre, looking the ground, still masturbating, recent dose increase in Paxil, unable to really care for him, not at a lower level of care given his behaviors. Currently on Risperdal, calm right now, but very impulsive, unpredictable. We will continue to monitor ongoing safety concerns. Staff concerned about his hypersexual behaviors and monitor him very closely. We will monitor for any side effects given recent dose increase of the Paxil. [facility]# [id number]
[2019-06-02] MEDS: Benztropine 1 MG TAB PO SCH ×2 (08:28→16:28)
[2019-06-02] MEDS: Multivitamin Tab PO SCH (08:28)
--- NOTE | 2019-06-02 19:03 | Progress Notes ---
DATE: 06/02/2019 SUBJECTIVE: The patient remains confused, preoccupied, rubbing his head and face, picking things on the floor, putting in his mouth, somewhat less hypersexual, no longer masturbating, is often remains unkempt, remains impulsive, unpredictable, bizarre. Medications have been adjusted. We will continue to monitor. JOB# [id number]
--- NOTE | 2019-06-03 03:04 | Progress Notes ---
DATE: 06/02/2019 INTERNAL MEDICINE CONSULTATION AND FOLLOWUP SUBJECTIVE: The patient is a 69-year-old male, [facility] CURRENT MEDICAL PROBLEMS: Include chronic obstructive pulmonary disease, seizure disorder, peptic ulcer disease, ____, arthritis. CHIEF COMPLAINT: No new symptoms. OBJECTIVE: VITAL SIGNS: Stable. LUNGS: Show occasional rhonchi, occasional crepitation. No bronchial breathing. HEART: First and second heart sounds normal. ABDOMEN: Soft. Minimal epigastric tenderness. Bowel sounds are present and good. EXTREMITIES: Show arthritis. NEUROLOGIC: The patient has advanced psychosis. Psych consult reviewed. Vital signs reviewed. Nursing records reviewed. PLAN: Continue current medical management and the medicine followup. [facility]# [id number]
[2019-06-03] MEDS: Multivitamin Tab PO SCH (08:42)
[2019-06-03] MEDS: Benztropine 1 MG TAB PO SCH ×2 (08:42→17:25)
--- NOTE | 2019-06-03 10:55 | Progress Notes ---
DATE: 06/03/2019 SUBJECTIVE: The patient remains bizarre, still symptomatic, at times naked, but less, no longer masturbating. Answering questions somewhat more appropriately. Still impoverished, bizarre, still putting objects in his mouth. Staff having to redirect him. Doing better with increased dose of Paxil and Risperdal. PLAN: We will continue to monitor ongoing safety concerns. [facility]# [id number]
--- NOTE | 2019-06-03 18:07 | Progress Notes ---
DATE: 06/03/2019 INTERNAL MEDICINE CONSULTATION SUBJECTIVE: The patient is a 69-year-old male. CURRENT MEDICAL PROBLEMS: Include seizures, COPD, coronary artery disease, peptic ulcer disease, gastritis, arthritis. CHIEF COMPLAINT: No new symptoms. OBJECTIVE: VITAL SIGNS: Stable. LUNGS: Show occasional rhonchi, occasional crepitation. No bronchial breathing. HEART: First and second heart sounds normal. ABDOMEN: Soft. Bowel sounds present. EXTREMITIES: Show arthritis. NEUROLOGIC: The patient has advanced psychosis. TREATMENT PLAN: Continue current medical management. Psych consult reviewed. JOB# [id number]
[2019-06-04] MEDS: Multivitamin Tab PO SCH (08:27)
[2019-06-04] MEDS: Benztropine 1 MG TAB PO SCH ×2 (08:27→16:33)
--- NOTE | 2019-06-04 14:02 | Progress Notes ---
DATE: 06/04/2019 SUBJECTIVE: The patient is still picking stuff off the ground, eating it really bizarre, highly impulsive, unpredictable, currently on dosing of Depakote. Still responding to internal stimuli, not making any sense on exam. We will check a Depakote level, ongoing symptoms, safety concerns, psychotic symptoms, obsessive symptoms DICTATION ENDS HERE JOB# [id number]
--- NOTE | 2019-06-04 21:20 | Progress Notes ---
DATE: 06/04/2019 INTERNAL MEDICINE CONSULTATION SUBJECTIVE: The patient is a 69-year-old male patient of mine at [facility]. CURRENT MEDICAL PROBLEMS: Include seizure disorder, COPD, coronary artery disease, peptic ulcer disease, gastritis, arthritis. CHIEF COMPLAINT: No new symptoms. OBJECTIVE: VITAL SIGNS: Stable. LUNGS: Show occasional rhonchi, occasional crepitation. No bronchial breathing. HEART: First and second present. ABDOMEN: Soft. Bowel sounds present. EXTREMITIES: Show arthritis. NEUROLOGIC: The patient has psychosis. TREATMENT PLAN: Continue current medical management. Psych consult reviewed. JOB# [id number]
[2019-06-05] MEDS: Multivitamin Tab PO SCH (08:13)
[2019-06-05] MEDS: Benztropine 1 MG TAB PO SCH ×2 (08:14→16:42)
--- NOTE | 2019-06-05 18:29 | Progress Notes ---
DATE: 06/05/2019 INTERNAL MEDICINE CONSULTATION FOLLOWUP The patient is 69-year-old male. CURRENT MEDICAL PROBLEMS: Include seizure disorder, COPD, peptic ulcer disease, gastritis, arthritis. No new symptoms. OBJECTIVE: VITAL SIGNS: Stable. LUNGS: Show occasional rhonchi, occasional crepitation. No bronchial breathing. HEART: First and second present. ABDOMEN: Soft. EXTREMITIES: Show arthritis. NEUROLOGIC: The patient has dementia. PLAN: Continue current medical management. Psych consult reviewed. JOB# [id number]
--- NOTE | 2019-06-05 21:44 | Progress Notes ---
DATE: 06/05/2019 SUBJECTIVE: The patient in the hospital, selectively mute, ____ picking, wandering and picking things off the floor, still responding to internal stimuli and bizarre. Ongoing safety concerns, I will be increasing dosing of Risperdal today. Recent dose increase of Paxil, ongoing psychotic symptoms. JOB# [id number]
--- NOTE | 2019-06-06 07:17 | Progress Notes ---
DATE: 06/06/2019 SUBJECTIVE: The patient in the hospital, remains symptomatic. Slept for about 5-6 hours. Calm at this time. Still disoriented, preoccupied, bizarre ideations, again ongoing EPS, still picking things up from off the ground. He is currently on Risperdal, Paxil 15 mg twice daily. We will continue to monitor, mild improvement noted. I will be increasing his dosing of Paxil to 20 mg twice a day. PLAN: We will continue to monitor. JOB# [id number]
[2019-06-06] MEDS: Multivitamin Tab PO SCH (08:39)
[2019-06-06] MEDS: Benztropine 1 MG TAB PO SCH ×2 (08:39→16:44)
[2019-06-07] MEDS: Benztropine 1 MG TAB PO SCH ×2 (08:37→16:06)
[2019-06-07] MEDS: Multivitamin Tab PO SCH (08:37)
[2019-06-08] MEDS: Multivitamin Tab PO SCH (08:41)
[2019-06-08] MEDS: Benztropine 1 MG TAB PO SCH ×2 (08:41→16:39)
[2019-06-09] MEDS: Multivitamin Tab PO SCH (09:08)
[2019-06-09] MEDS: Benztropine 1 MG TAB PO SCH (09:08)
== END 2019-06-09 15:50 | DRG 885 ==
LOC: GERO 22:02
PROVIDERS: ADMIT Psychiatry & Neurology Psychiatry; ATTEND Psychiatry & Neurology Psychiatry
DX: F20.9 Schizophrenia, unspecified (principal); F03.90 Unspecified dementia, unspecified severity, without behavioral disturbance, psychotic disturbance, mood disturbance, and anxiety; J44.9 Chronic obstructive pulmonary disease, unspecified; I10 Essential (primary) hypertension; M19.90 Unspecified osteoarthritis, unspecified site; I25.10 Atherosclerotic heart disease of native coronary artery without angina pectoris; K29.70 Gastritis, unspecified, without bleeding; K27.9 Peptic ulcer, site unspecified, unspecified as acute or chronic, without hemorrhage or perforation; G40.909 Epilepsy, unspecified, not intractable, without status epilepticus; M81.0 Age-related osteoporosis without current pathological fracture
CPT/HCPCS: 71045-TC; 83036-90; G0410; J3230; Z7610